=== PATIENT | male | born 1955 | race Caucasian/White ===

== ENCOUNTER 2025-05-31 12:23 | Emergency (ER) | payer OTHER, SELFPAY ==
[2025-05-31 12:31] VITALS: BP 136/79; PULSE 58; TEMP 36.5; O2SAT 97; BMI 35.0
--- OUTSIDE RECORDS SUMMARY | 2025-05-31 12:37 | XMS_ITS | Clinical Summary ---
Author Organization [employer] Address [id number] [place] [address] Care Team Providers Care Pairer Inspector Name Role Phone Rodney Oliver DO Primary Care Provider [phone] Social History Tobacco Use Types Packs/Day Years Used Date Smoking Tobacco: Never Assessed Childcare Answer Date Recorded Childcare Unknown 02/27/2019 Employment Answer Date Recorded Employment Unknown 02/27/2019 Sex and Gender Information Value Date Recorded Sex Assigned at Not on file Legal Sex Male 11:27 AM EDT Gender Identity Not on file Sexual Orientation Not on file Plan of Treatment Health Maintenance Due Date Last Done Comments Depression Screening 1966 Tobacco Screening 1966 Adult BMI Screening 1972 Fall Risk Screening 2019 COVID-19 Vaccine (2023-2 5 season) 2024 09/06/2022, 01/15/2022, 07/20/2021, Additional history exists Influenza Vaccine 05/19/2025 DTaP,Tdap and Td Vaccines (2 - Td or Tdap) 10/10/2028 10/10/2018 Zoster (Shingles) Vaccine Completed 03/08/2023, 06/2023 Medical Devices Not on file Insurance [employer] MEDICARE Care Teams Pairer Inspector Relationship Specialty Start Date End Date Rodney Oliver DO [address] [place] [address] PCP - General Family Medicine 06/09/23
--- OUTSIDE RECORDS SUMMARY | 2025-05-31 12:37 | XMS_ITS | Encounter Summary ---
Author Organization [facility] Address [address] [place] [address] Care Team Providers Care Acid Retort Operator Name Role Phone Rodney Oliver DO Primary Care Provider [phone] Rodney Oliver DO Unavailable [phone] Encounter Details Date Type Department Care Team (Late st Contact Info) Description 08/30/2023 Orders Only [facility] [place] [facility] [address] [facility] [address] [place] [phone] Rodney Oliver DO [address] [facility] [address] [place] [address] Social History Tobacco Use Types Packs/Day Years Used Date Smoking Tobacco: Former Cigarettes 0.5 10 2012 Smokeless Tobacco: Never Alcohol Use Standard Drinks/Week Comments Never 0 (1 standard drink = 0.6 oz pure alcohol) caffeine intake: 1-2 cups per day. Humiliation, Afraid, Rape, and Kick questionnair e Answer Date Recorded Within the last year, have y ou been afraid of your partner or ex-partner? No 06/14/2023 Within the last year, have y ou been humiliated or emotionally abused in other ways by your partner or ex-partner? No Within the last year, have y ou been kicked, hit, slapped, or otherwise physically hurt by your partner or ex-partner? No 06/14/2023 Within the last year, have y ou been raped or forced to have any kind of sexual activity by your partner or ex-partner? No 06/14/2023 Social Connection and Isolat ion Panel [NHANES] Answer Date Recorded In a typical week, how many times do you talk on the phone with family, friends, or neighbors? More than three times a week 06/14/2023 How often do you get togethe r with friends or relatives? Twice a week 06/14/2023 How often do you attend chur ch or scientologist services? More than 4 times per year 06/14/2023 Do you belong to any clubs o r organizations such as caodaism groups, unions, fraternal or athletic groups, or school groups? Yes 06/14/2023 How often do you attend meet ings of the clubs or organizations you belong to? More than 4 times per year 06/14/2023 Are you , , di vorced, , never , or living with a partner? 06/14/2023 AUDIT-C Answer Date Recorded Q1: How often do you have a drink containing alcohol? Never 06/14/2023 Q2: How many drinks containi ng alcohol do you have on a typical day when you are drinking? Patient does not drink Q3: How often do you have si x or more drinks on one occasion? Never 06/14/2023 Overall Financial Resource Strain (CARDIA) Answe r Date Recorded How hard is it for you to pa y for the very basics like food, housing, medical care, and heating? Not hard at all 06/14/2023 PHQ-2 Answer Date Recorded Patient Health Questionnaire-2 Score 0 06/15/2023 [facility] Questionnaire Answer Date Recorded Do you feel stress - tense, restless, nervous, or anxious, or unable to sleep at night because your mind is troubled all the time - these days? Not at all 06/14/2023 Exercise Vital Sign Answer Date Recorde d On average, how many days pe r week do you engage in moderate to strenuous exercise (like a brisk walk)? 3 days 06/14/2023 On average, how many minutes do you engage in exercise at this level? 60 min 06/14/2023 Hunger Vital Sign Answer Date Recorded Within the past 12 months, y ou worried that your food would run out before you got the money to buy more. Never true 06/14/20 23 Within the past 12 months, t he food you bought just didn't last and you didn't have money to get more. Never true 06/14/2023 PRAPARE - Transportation Answer Date Re corded In the past 12 months, has l ack of transportation kept you from medical appointments or from getting medications? No 05/20 In the past 12 months, has l ack of transportation kept you from meetings, work, or from getting things needed for daily living? No 06/14/2023 Housing Stability Vital Sign Answer Lg e Recorded In the last 12 months, was t here a time when you were not able to pay the mortgage or rent on time? No 06/14/2023 In the last 12 months, how many places have you lived? 1 06/14/2023 In the last 12 months, was t here a time when you did not have a steady place to sleep or slept in a correction (including now)? No 06/14/2023 Sex and Gender Information Value Date Recorded Sex Assigned at Male 05/17/2023 8:15 AM EDT Legal Sex Male 6:45 PM EDT Gender Identity Male 05/17/2023 8:15 AM EDT Sexual Orientation Straight 05/17/2023 8: 15 AM EDT COVID-19 Exposure Response Date Recorded In the last 10 days, have yo u been in contact with someone who was confirmed or suspected to have Coronavirus/COVID-19? No / Unsure 08/21/2023 12:12 PM EST documented as of this encounter Plan of Treatment Upcoming Encounters Date Type Department Care Team (Late st Contact Info) Description 06/12/2025 2:00 PM EDT Office Visit [facility] [address] [place] [phone] Susanne Villareal, GLORIA [address] [place] [address] 06/12/2025 2:20 PM EDT Office Visit [facility] [address] [place] [address] Rodney Oliver DO [address] [place] [address] 12/09/2025 4:05 PM EDT Office Visit [facility] [place] [facility] [address] [place] [phone] Asmita Aguirre MD [address] [place] [address] documented as of this encounter Procedures Procedure Name Priority Date/Time Associated Diagnosis Comments CAROTID DUPLEX Routine 08/22/2023 2:10 PM EST PVR Routine 08/22/2023 2:06 PM EST ULTRASOUND : ABDOMEN, UPPER Routine 08/22/2023 2:02 PM EST documented in this encounter Results * CAROTID DUPLEX (08/22/2023 2:10 PM EST) Anatomical Region Laterality Modality Radiographic Ana ging us Rodney Oliver DO IMG XR PROCEDURES Final Result * PVR (08/22/2023 2:06 PM EST) Anatomical Region Laterality Modality Radiographic Ana ging us Rodney Oliver DO IMG XR PROCEDURES Final Result * ULTRASOUND : ABDOMEN, UPPER (08/22/2023 2:02 PM EST) Anatomical Region Laterality Modality Radiographic Ana ging us Rodney Oliver DO IMG XR PROCEDURES Final Result documented in this encounter Visit Diagnoses Not on filedocumented in this encounter Additional Health Concerns Assessment Noted Time PHQ-9 Depression Total Score: 0 06/15/20 23 2:00 PM EDT documented as of this encounter Care Teams Acid Retort Operator Relationship Specialty Start Date End Date Rodney Oliver DO [address] [place] [address] PCP - General Family Medicine 01/24/23 Rodney Oliver DO [address] [place] [address] PCP - [employer] 09/18/21 documented as of this encounter
--- OUTSIDE RECORDS SUMMARY | 2025-05-31 12:37 | XMS_ITS | Clinical Summary ---
Author Organization [facility] Address [address] [place] [address] Care Team Providers Care Charger Operator Name Role Phone Rodney Oliver DO Primary Care Provider [phone] Rodney Oliver DO Unavailable [phone] Allergies No known active allergies Medications Elastic Bandages & Supports (Medical Compression Stockings) misc 1 (one) time each day at the same time. 2 Active albuterol HFA 90 mcg/act inhaler 3 Active cyclobenzaprine (Flexeril) 10 MG tablet 1 tablet Orally at bedtime 3 Active dicyclomine (Bentyl) 20 MG tablet 3 Active sildenafil (Viagra) 100 MG tablet 1 tablet Orally Once a day prn erectile dysfunction for 30 days 2 Active methylPREDNISolo ne (Medrol Dospak) 4 MG tabletsIndicatio ns:Right Achilles tendinitis Follow schedule on MEDROL PACK package instructions to be used as directed 21 tablet 3 Active bisoprolol-hydro CHLOROthiazide (Ziac) 10-6.25 MG tabletIndication s:Essential hypertension TAKE 1 TABLET BY MOUTH DAILY 90 tablet 3 5 Active amLODIPine (Norvasc) 10 MG tabletIndication s:Essential hypertension TAKE 1 TABLET BY MOUTH DAILY 90 tablet 3 5 Active Active Problems Problem Noted Date Diagnosed Date Atelectasis 06/05/2023 Basal cell carcinoma of face 06/05/2023 BPH (benign prostatic hyperplasia) 06/05/2023 Class 2 obesity 06/05/2023 Erectile dysfunction 06/05/2023 Essential hypertension 06/05/2023 Hyperlipidemia 06/05/2023 Melanocytic nevi of trunk 06/05/2023 Morbid obesity 06/05/2023 Immunizations Immunization Administration Dates Next Due ABRYSVO - Respiratory syncyt ial virus (RSV), vaccine, bivalent, protein subunit RSV prefusion F, diluent reconstituted, 0.5 mL, PF 09/26/2023 Pfizer Purple Cap SARS-CoV-2 Vaccination 021 Pneumococcal Conjugate PCV 20 2024 SARS-COV-2 (COVID-19) vaccin e, mRNA, spike protein, LNP, bivalent, PF 09/06/2022 Tdap 10/10/2018 Zoster, Recombinant 03/08/2023,11/25/2022 Family History Medical History Relation Name Comments Heart disease Father Cesario Brizuela Stroke Father Cesario Brizuela Cancer Mother Yumiko Brizuela Melanoma Neg Hx Relation Name Status Comments Brother Alive Daughter 1 Alive Daughter 2 Alive Father Cesario Brizuela Mother Yumiko Brizuela Social History Tobacco Use Types Packs/Day Years Used Date Smoking Tobacco: Former Cigarettes 0.5 10 2 2012 Passive Smoke Exposure: Past Smokeless Tobacco: Never Tobacco Cessation:Counseling Given: Not Answered Alcohol Use Standard Drinks/Week Comments Never 0 [...] often do you attend chur ch or taoist services? More than 4 times per year 06/14/2023 Do you belong to any clubs o r organizations such as evangelical groups, unions, fraternal or athletic groups, or [...] Date Recorded Patient Health Questionnaire-2 Score 0 2024 [facility] - Occupational Stress Questionnaire Answer Date Recorded [...] place to sleep or slept in a usp (including now)? No 06/14/2023 Sex and Gender Information Value Date Recorded Sex Assigned at Male 05/17/2023 8:15 AM EDT Legal Sex Male 6:45 PM EDT Gender Identity Male 05/17/2023 8:15 AM EDT Sexual Orientation Straight 05/17/2023 8: 15 AM EDT Last Filed Vital Signs Vital Sign Reading Time Taken Comments Blood Pressure 128/80 2024 2:20 PM EDT Pulse 71 2024 2:20 PM EDT Temperature 36.7 C (98 F) 2024 2:20 PM EDT Respiratory Rate - - Oxygen Saturation 71% 2024 2:09 PM EDT Inhaled Oxygen Concentration - - Weight 136 kg (300 lb) 2024 2:20 PM EDT Height 185.4 cm (6' 1 ) 2024 2:20 PM EDT Body Mass Index 39.58 2024 2:20 PM EDT Plan of Treatment Upcoming Encounters Date Type Department Care Team (Late st Contact Info) Description 06/12/2025 2:00 PM EDT [facility] [address] [place] [phone] Susanne Villareal NP [address] [place] [address] 06/12/2025 2:20 PM EDT Office Visit [facility] [address] [place] [phone] Rodney Oliver DO [address] [place] [address] 12/09/2025 4:05 PM EDT [facility] [address] [place] [address] Asmita Aguirre MD [address] [place] [address] Health Maintenance Due Date Last Done Comments CT Colonography 1954 FIT-DNA 1954 FIT 1954 FOBT 1954 Sigmoidoscopy 1954 Skin Cancer Screening 1955 Influenza Vaccine (#1) 2025 Medicare Annual Wellness (AWV) 2025 0 2024, 2024, 06/15/2023, Additional history exists Colonoscopy 05/06/2031 05/06/2021, 08/0 11/2015, 08/25/2006 Colorectal Cancer Screening 05/06/2031 Pneumococcal Vaccine: 65+ Years Completed 4 Procedures Procedure Name Priority Date/Time Associated Diagnosis Comments COLONOSCOPY Routine 05/06/2021 12:00 PM EDT from Last 3 Months or Most Recently Relevant to Health Maintenance Results * Colonoscopy (05/06/2021 12:00 PM EDT) Anatomical Region Laterality Modality Endoscopy 05/06/2021 12:0 0 PM EDT Narrative 05/06/2021 12:00 PM EDT PERFORMED AT [facility] LOCATION:[id number] [facility] Procedure Note CONVERSION, GENERIC - 02/01/2023 PERFORMED AT [facility] LOCATION:[id number] [facility] Rodney Oliver DO ENDOSCOPY PROCEDURE ORDERABLES Final Result from Last 3 Months or Most Recently Relevant to Health Maintenance Insurance [employer] MEDICARE ADVANTAGE Care Teams Charger Operator Relationship Specialty Start Date End Date Rodney Oliver DO [address] [facility] [address] [place] [address] PCP - General Family Medicine 01/24/23 Rodney Oliver DO [address] [facility] [address] [place] [address] PCP - [employer] 09/18/21
--- OUTSIDE RECORDS SUMMARY | 2025-05-31 12:37 | XMS_ITS | Encounter Summary ---
Author Organization [facility] Address [address] [place] [address] Care Team Providers Care Garage Helper Name Role Phone Rodney Oliver DO Primary Care Provider [phone] Rodney Oliver DO Unavailable [phone] Encounter Details Date Type Department Care Team (Late st Contact Info) Description 06/15/2023 Orders Only [facility] [address] [facility] [address] [place] [phone] A, Unknown Practice [address] [phone] Social History Tobacco Use Types Packs/Day Years Used Date Smoking Tobacco: Former Cigarettes Q uit: 09/18/2009 Smokeless Tobacco: Never Alcohol Use Standard Drinks/Week [...] often do you attend chur ch or worship services? More than 4 times per year 06/14/2023 Do you belong to any clubs o r organizations such as uatsdin groups, unions, fraternal or athletic groups, or [...] Recorded Patient Health Questionnaire-2 Score 0 06/15/2023 [facility] - Occupational Stress Questionnaire Answer Date [...] place to sleep or slept in a mcfp (including now)? No 06/14/2023 Sex and Gender [...] suspected to have Coronavirus/COVID-19? No / Unsure 06/14/2023 8:56 PM EDT documented as of this encounter Functional Status * Over the past 2 weeks, how often have you been bothered by any of the following problems? Question Answer Date of Assessment Author Little interest or pleasure in doing things Not at all 06/15/2023 2:00 PM EDT Susanne Villareal NP Feeling down, depressed, or hopeless Not at all 06/15/2023 2:00 PM EDT Susanne Villareal NP Patient Health Questionnaire -2 Score 0 06/15/2023 2:00 PM EDT Susanne Villareal NP * Question Answer Date of Assessment Author Trouble falling or staying asleep, or sleeping too much Not at all 06/15/2023 2:00 PM EDT Gary Villareal NP Feeling tired or having christine le energy Not at all 06/15/2023 2:00 PM EDT Susanne Villareal NP Poor appetite or overeating Not at all 06/15/2023 2: 00 PM EDT Susanne Villareal NP Feeling bad about yourself - or that you are a failure or have let yourself or your family down Not at all 06/15/2023 2:00 PM EDT Susanne Villareal NP Trouble concentrating on thi ngs, such as reading the newspaper or watching television Not at all 06/15/2023 2:00 PM EDT Susanne Villareal NP Moving or speaking so slowly that other people could have noticed? Or the opposite - being so fidgety or restless that you have been moving around a lot more than usual. Not at all 06/15/2023 2:00 PM EDT Susanne Villareal NP Thoughts that you would be b rick off or hurting yourself in some way Not at all 06/15/2023 2:00 PM EDT Susanne Villareal NP Patient Health Questionnaire -9 Score 0 06/15/2023 2:00 PM EDT Susanne Villareal NP documented as of this encounter Plan of Treatment Upcoming Encounters Date Type Department Care Team (Late st Contact Info) Description 06/12/2025 2:00 PM EDT Office Visit [facility] [address] [place] [address] Susanne Villareal NP [address] [place] [address] 06/12/2025 2:20 PM EDT Office Visit [facility] [address] [place] [address] Rodney Oliver DO [address] [place] [address] 12/09/2025 4:05 PM EDT Office Visit [facility] [address] [place] [address] Asmita Aguirre MD [address] [place] [address] documented as of this encounter Procedures Procedure Name Priority Date/Time Associated Diagnosis Comments XR CHEST 2 VIEWS Routine 06/09/2023 3:05 PM EDT documented in this encounter Results * XR chest 2 views (06/09/2023 3:05 PM EDT) Anatomical Region Laterality Modality Chest Radiographic Ana ging us Unknown Practice A IMG XR PROCEDURES Final Resul t documented in this encounter Visit Diagnoses Not on filedocumented in this encounter Additional Health Concerns Assessment Noted Time PHQ-9 Depression Total Score: 0 06/15/20 23 2:00 PM EDT documented as of this encounter Care Teams Garage Helper Relationship Specialty Start Date End Date Rodney Oliver, [address] [place] [address] PCP - General Family Medicine 01/24/23 Rodney Oliver DO [address] [place] [address] PCP - [employer] 09/18/21 documented as of this encounter
--- OUTSIDE RECORDS SUMMARY | 2025-05-31 12:37 | XMS_ITS | Encounter Summary ---
Author Organization [facility] Address [address] [facility] [place] [address] Care Team Providers Care Electric Utility Lineworker Name Role Phone Rodney Oliver DO Primary Care Provider [phone] Rodney Oliver DO Unavailable [phone] Encounter Details Date Type Department Care Team (Late st Contact Info) Description 06/15/2023 Abstract [facility] [place] [facility] [address] [facility] [address] [place] [phone] Asmita Aguirre MD [address] [facility] [address] [place] [address] Social History Tobacco Use Types Packs/Day Years [...] often do you attend chur ch or adventist services? More than 4 times per year 06/14/2023 Do you belong to any clubs o r organizations such as orthodox groups, unions, fraternal or athletic groups, or [...] Recorded Patient Health Questionnaire-2 Score 0 06/15/2023 [facility] - Occupational Stress Questionnaire Answer [...] place to sleep or slept in a half-way (including now)? No 06/14/2023 Sex and Gender [...] Not at all 06/15/2023 2:00 PM EDT Luby, Je nna L, ULTRASOUND SPECIALIST Feeling tired or having christine le energy Not at all 06/15/2023 2:00 PM EDT Susanne Villareal NP Poor appetite or overeating Not at all 06/15/2023 2: 00 PM EDT Susanne Villareal NP Feeling bad about yourself - or that you are a failure or have let yourself or your family down Not at all 06/15/2023 2:00 PM EDT Susanne Villraeal NP Trouble concentrating on thi ngs, such [...] Description 06/12/2025 2:00 PM EDT Office Visit [facility] [address] [place] [address] Susanne Vilalreal ULTRASOUND SPECIALIST [address] [place] [address] 06/12/2025 2:20 PM EDT Office Visit [facility] [address] [place] [address] Rodney Oliver DO [address] [place] [address] 12/09/2025 4:05 PM EDT Office Visit [facility] [place] [facility] [address] [place] [address] Asmita Aguirre MD [address] [place] [address] documented as of this encounter Visit Diagnoses Not on filedocumented in this encounter Additional Health Concerns Assessment Noted Time PHQ-9 Depression Total Score: 0 06/15/20 23 2:00 PM EDT documented as of this encounter Care Teams Electric Utility Lineworker Relationship Specialty Start Date End Date Rodney Oliver DO [address] [place] [address] PCP - General Family Medicine 01/24/23 Rodney Oliver DO [address] [place] [address] PCP - [employer] 09/18/21 documented as of this encounter
--- OUTSIDE RECORDS SUMMARY | 2025-05-31 12:37 | XMS_ITS | Encounter Summary ---
Author Organization [facility] Address [address] [place] [address] Care Team Providers Care Cloth Winding Supervisor Name Role Phone Rodney Oliver DO Primary Care Provider [phone] Rodney Oliver DO Unavailable [phone] Encounter Details Date Type Department Care Team (Late st Contact Info) Description 06/15/2023 Abstract [facility] [place] [facility] [address] [facility] [address] [place] [address] Susanne Villareal NP [address] [facility] [address] [place] [address] Social History Tobacco Use Types Packs/Day Years Used Date Smoking Tobacco: Former Cigarettes Q uit: 09/18/2009 Smokeless Tobacco: Never Tobacco Cessation:Counseling Given: Not [...] often do you attend chur ch or muslim services? More than 4 times per year 06/14/2023 Do you belong to any clubs o r organizations such as anabaptism groups, unions, fraternal or athletic groups, or [...] Recorded Patient Health Questionnaire-2 Score 0 06/15/2023 [facility] - Occupational Stress Questionnaire Answer Date [...] place to sleep or slept in a assisted (including now)? No 06/14/2023 Sex and Gender [...] all 06/15/2023 2:00 PM EDT Gary Villareal PUBLIC HEALTH DOCTOR Feeling tired or having christine le energy [...] Description 06/12/2025 2:00 PM EDT Office Visit [facility] [address] [place] [phone] Susanne Villareal NP [address] [place] [address] 06/12/2025 2:20 PM EDT Office Visit [facility] [address] [place] [phone] Rodney Oliver DO [address] [place] [address] 12/09/2025 4:05 PM EDT Office Visit [facility] [place] [facility] [address] [place] [address] Asmita Aguirre MD [address] [facility] [address] [place] [address] documented as of this encounter Visit Diagnoses Not on filedocumented in this encounter Additional Health Concerns Assessment Noted Time PHQ-9 Depression Total Score: 0 06/15/20 23 2:00 PM EDT documented as of this encounter Care Teams Cloth Winding Supervisor Relationship Specialty Start Date End Date Rodney Oliver DO [address] [facility] [address] [place] [address] PCP - General Family Medicine 01/24/23 Rodney Oliver DO [address] [facility] [address] [place] [address] PCP - [employer] 09/18/21 documented as of this encounter
--- NOTE | 2025-05-31 13:07 | ED_ITS ---
HPI HPI - Extremity Injury (Lower) General Chief Complaint: Extremity Injury, Lower Stated Complaint: R KNEE PAIN/INJURY Time Seen by Provider: 05/31/25 12:41 Source: patient Mode of arrival: walk-in History of Present Illness HPI Narrative: 69-year-old male presents to the ED after sustaining a left knee injury just prior to arrival while he was using his leaf blower he twisted his knee around when he was turning towards the left sharp pull on the lateral posterior aspect of his knee. He did not feel a pop or snap. He states it is painful to ambulate so he has been using some crutches. His pain does seem to be on the pushoff phase of his gait he is able to get in a position of comfort full extension of the knee is mostly uncomfortable. He denies any numbness or tingling of his extremity. This foot or hip. No calf pain. NO medications at this time. He has a history of meniscal tear with surgical repair multiple years ago. NO other history of knee injury or surgery. Related Data Home Medications ?Medication ?Instructions ?Recorded ?Confirmed amlodipine 10 mg tablet 10 mg PO DAILY 05/31/2505/19 bisoprolol 10 1 tab PO DAILY 05/31/2505/19 mg-hydrochlorothiazide 6.25 mg tablet Previous Rx's ?Medication ?Instructions ?Recorded diclofenac sodium 50 mg 50 mg PO Q12H PRN pain #20 t abs 05/31/25 tablet,delayed release Allergies Allergy/AdvReac Type Severity Reaction Status Date / Time No Known Drug Allergies Allergy Verified 05/31/25 12:30 PFSH PFSH Social History Little interest or pleasure in doing things: not at all Feeling down, depressed, or hopeless: not at all Exam Narrative Exam Narrative: * General: Alert, well-appearing, healthy and active male in mild discomfort but no acute distress. * Vitals: Stable and within normal limits. * Right Knee: * Focal tenderness just adjacent to the lateral hamstring tendon in the posterior-lateral knee. * No ligamentous laxity (negative varus/valgus stress, Francis). * No pain or clicking with Luba test. * No pain with resisted knee extension or flexion. * No patellar tenderness, swelling, erythema, or effusion. * Full active and passive range of motion with mild discomfort near terminal extension. * Pain on push off phase of gait, but able to move through motion. * Lower Extremity: * Calf soft, no tenderness, swelling, or erythema. * Neurovascularly intact; distal pulses palpable and equal. * No hip pain, no IT band tenderness, no swelling in the lower extremity * Hip/Foot: Full range of motion without pain. Constitutional Vital Signs, click to edit/add: Last Vital Signs Temp 97.7 F 05/31/25 12:31 Pulse 58 L 05/31/25 12:31 Resp 16 05/31/25 12:31 BP 136/79 05/31/25 12:31 Pulse Ox 97 05/31/25 12:31 O2 Del Method Room Air 05/31/25 12:31 Course Vital Signs Vital signs: Vital Signs Temperature 97.7 F 05/31/25 12:31 Pulse Rate 58 L 05/31/25 12:31 Respiratory Rate 16 05/31/25 12:31 Blood Pressure 136/79 05/31/25 12:31 Pulse Oximetry 97 05/31/25 12:31 Oxygen Delivery Method Room Air 05/31/25 12:31 Temperature 97.7 F 05/31/25 12:31 Pulse Rate 58 L 05/31/25 12:31 Respiratory Rate 16 05/31/25 12:31 Blood Pressure 136/79 05/31/25 12:31 Pulse Oximetry 97 05/31/25 12:31 Oxygen Delivery Method Room Air 05/31/25 12:31 MDM - Extremity Injury (Lower) MDM Narrative Medical decision making narrative: 69-year-old healthy, active male presents with acute right posterior-lateral knee pain after twisting injury doin yard work. On exam, there is focal tenderness adjacent to the lateral hamstring tendon, no ligamentous laxity, no pain with Luba testing or resisted knee flexion/extension, no patellar tenderness, no swelling, and neurovascularly intact. Findings are consistent with a mild soft tissue strain, likely involving the lateral hamstring tendon insertion. There is no evidence of meniscal tear, ligament rupture, fracture, or neurovascular compromise. Imaging: Discussed X-ray; however, using shared decision-making and recognizing that the patient did not fall and has no indications for bony injury, an X-ray was not performed at this time. Supportive care was discussed, including rest, ice, gentle [id number] exercises, and anti-inflammatory use (diclofenac 50 mg BID PRN). Discussed xray, however using shared decision making and knowing he did not fall or have any indication for bony injury, xray was not preformed at this time Advised gradual return to activity given patient?s active lifestyle, avoiding high-impact or twisting activities until pain improves. Follow-up with primary care in 10 days for reassessment is appropriate. Referral to orthopedics recommended if pain persists beyond 7?10 days or if symptoms worsen (locking, giving way, swelling, or inability to bear weight). Patient verbalized understanding and is agreeable to the plan. Differential Diagnosis Differential diagnosis: Likely acute internal derangement of knee and other Medical Records Attestation: I reviewed the patient's medical records. Lab Data Attestation: I reviewed the patient's lab results. Discharge Plan Discharge Chief Complaint: Extremity Injury, Lower Clinical Impression: Right knee sprain Patient Disposition: Home, Self-Care Time of Disposition Decision: 13:19 Condition: Good Prescriptions / Home Meds: New diclofenac sodium 50 mg tablet,delayed release (DR/EC) 50 mg PO Q12H PRN (Reason: pain) Qty: 20 0RF No Action bisoprolol-hydrochlorothiazide 10-6.25 mg tablet 1 tab PO DAILY amlodipine 10 mg tablet 10 mg PO DAILY Print Language: Cymro Instructions: Knee Sprain (DC), P.R.I.C.E. Treatment (ED) Additional Instructions: Discharge Instructions Diagnosis: * Right lateral knee strain (soft tissue injury near lateral hamstring tendon) What Happened Today: * Examined your knee ? no ligament injury, no swelling, no meniscus tear signs * No signs of fracture, tendon rupture, or blood clot * Pain appears to be from a mild strain near the tendon in the back/side of your knee Care at Home: * Rest: Use crutches if needed to limit pain, but gentle walking is okay as tolerated. * Ice: Apply an ice pack to the outside/back of the knee for 20 minutes at a time, 3?4 times per day for the next 48 hours. * Compression: You may use a light elastic knee sleeve or wrap for support if comfortable. * Elevation: Prop the leg up on pillows when sitting or lying down to help with comfort. * Gentle Motion: Slowly bend and straighten the knee a few times a day to keep it from getting stiff (only within a comfortable range). Medications: * Diclofenac 50 mg ? take one tablet by mouth twice daily as needed for pain. * Take with food to reduce stomach irritation. * Do not take other NSAIDs (such as ibuprofen, naproxen, aspirin) while on diclofenac unless instructed by your doctor. * Watch for side effects: stomach pain, black/tarry stools, vomiting blood, or new heartburn. If these occur, stop the medication and seek medical care right away. * Avoid alcohol while taking this medication as it may increase the risk of stomach irritation or bleeding. * You may take acetaminophen (Tylenol) if you need extra pain relief. Activity Guidance: * Gentle walking is encouraged as tolerated. * Avoid twisting, pivoting, running, or lifting heavy objects until pain improves. * Light yard work, household tasks, and non-impact activities may be resumed if comfortable. * Gradually increase activity over the next 1?2 weeks as tolerated. * If pain worsens with activity, stop and rest the knee. Follow-Up: * Keep your appointment with your primary care provider in 10 days for reassessment. * If pain does not improve in 7?10 days, ask about a referral to orthopedics. When to Return to the ED: * Sudden severe pain, inability to bear weight, or knee ?locking? * Significant swelling, redness, warmth, or fever * Numbness, tingling, or loss of sensation in the foot * Stomach pain, vomiting blood, or black/tarry stools * Any other new or concerning symptoms Referrals: MORRIS MUÑIZ [Primary Care Provider, Family Practice] - 1 week Discharge Date/Time: 05/31/25 13:50
== END 2025-05-31 13:50 | disposition home or self-care (01) ==
PROVIDERS: Emergency Provider Emergency Medicine; Family Provider Family Medicine; PCP Family Medicine
DX: S83.91XA Sprain of unspecified site of right knee, initial encounter (principal); X50.1XXA Overexertion from prolonged static or awkward postures, initial encounter
CPT/HCPCS: 99283